=== PATIENT | female | born 1985 | race Caucasian/White ===

== ENCOUNTER 2022-05-16 12:17 | Emergency (ER) | payer OTHER, SELFPAY ==
--- NOTE | ~2022-05-16 | XR_ITS ---
XR hand RT min 3V DATE: 05/16/2022 13:39 INDICATION: Pain and swelling at third through fifth metacarpals TECHNIQUE: 3 views COMPARISON: None FINDINGS: No fracture or dislocation, periosteal reaction or bone destruction, joint space narrowing, erosive change or chondrocalcinosis. IMPRESSION: Negative Reviewed, dictated and finalized at location B. IMPRESSION: Negative
--- NOTE | ~2022-05-16 | XR_ITS ---
XR wrist RT min 3V DATE: 05/16/2022 13:39 INDICATION: Pain and swelling TECHNIQUE: 4 views COMPARISON: None FINDINGS: No fracture or dislocation, periosteal reaction or bone destruction, joint space target, er osive change or chondrocalcinosis. IMPRESSION: Negative Reviewed, dictated and finalized at location B. IMPRESSION: Negative
[2022-05-16 12:24] VITALS: BP 141/111; PULSE 87; RESP 14; TEMP 36.6; O2SAT 98
--- NOTE | 2022-05-16 13:41 | ED_ITS ---
HPI - Extremity Injury (Upper) General Chief Complaint: Extremity Injury, Upper Stated Complaint: Right Hand Pain Time Seen by Provider: 05/16/22 12:28 History of Present Illness HPI narrative: 37-year-old female presents the emergency room for evaluation of pain to her right hand. Patient states she was out walking her dog, when the dog took off causing the leash to wrapped tightly around her hand. Injury occurred earlier this morning. Patient presents with pain to the ulnar side of her right hand. States she took 2 Aleve with no alleviation of pain. Related Data Allergies Allergy/AdvReac Type Severity Reaction Status Date / Time No Known Allergies Allergy Mild Verified 05/16/22 12:27 Review of Systems Review of Systems: CONSTITUTIONAL: Denies fever, chills, or sweats. EYES: Denies visual changes, redness, or discharge. ENT: Denies rhinorrhea, congestion, sore throat, or otalgia. CARDIOVASCULAR: Denies chest pain, palpitations, or edema. RESPIRATORY: Denies cough or dyspnea. GASTROINTESTINAL: Denies abdominal pain, nausea, vomiting, or diarrhea. GENITOURINARY: Denies dysuria or hematuria. SKIN: Denies rash or itching. MUSCULOSKELETAL: Reports pain to right hand NEUROLOGIC: Denies headache, numbness, dizziness, or weakness. PSYCHIATRIC: Denies anxiety or depression. Exam Narrative: GENERAL: Well-appearing, well-nourished, no physical limitations, and in no acute distress. HEAD: Normocephalic, atraumatic. EYES: Conjunctivae normal, PERRLA and EOMI. CHEST: Clear to auscultation. No respiratory distress. No wheezes rales or rhonchi. No tenderness. HEART: Regular rate and rhythm. No murmur heard. Normal peripheral pulses. EXTREMITIES: Right hand: Soft tissue swelling, ecchymosis and tenderness to the fifth meta carpal. No obvious bony abnormality. Limited range of motion due to pain. Neurovascular is intact distally SKIN: Warm, dry, no rash. No noted wounds NEURO: No focal deficits. Alert and oriented x3. MAEW. CN's II-XI intact bilaterally, normal gait PSYCH: Cooperative. Normal mood and affect. Course Vital Signs Vital signs: Vital Signs Temperature 36.6 C 05/16/22 12:24 Pulse Rate 87 05/16/22 12:24 Respiratory Rate 14 05/16/22 12:24 Blood Pressure 141/111 H 05/16/22 12:24 Pulse Oximetry 98 05/16/22 12:24 Temperature 36.6 C 05/16/22 12:24 Pulse Rate 87 05/16/22 12:24 Respiratory Rate 14 05/16/22 12:24 Blood Pressure 141/111 H 05/16/22 12:24 Pulse Oximetry 98 05/16/22 12:24 Discharge Plan Discharge Clinical Impression: Contusion of hand, right Patient Disposition: Home, Self-Care Condition: Stable Instructions: Antibiotic Form Additional Instructions: Continue using naproxen Follow-up/Referrals: PHYSICIAN,SHUTTLELESS LOOM WEAVER [Primary Care Provider] - Time of Disposition: 14:12
== END 2022-05-16 14:39 | disposition home or self-care (01) ==
PROVIDERS: Emergency Provider Nurse Practitioner Family
DX: S60.221A Contusion of right hand, initial encounter (principal); Y93.K1 Activity, walking an animal; W49.09XA Other specified item causing external constriction, initial encounter
CPT/HCPCS: 73110; 73130; 99283

== ENCOUNTER 2023-12-05 13:20 | Emergency (ER) | payer BC, SELFPAY ==
--- NOTE | ~2023-12-05 | XR_ITS ---
EXAMINATION: XR tibia fibula RT 2V DATE: 12/05/2023 14:33 INDICATION: Right davis pain. Fall. TECHNIQUE: 2 views of right tibia and fibula were obtained. COMPARISON: None. FINDINGS: Bone alignment is normal. No fracture. There is mild right knee osteoarthritis. IMPRESSION: 1. Mild right knee osteoarthritis. Reviewed, dictated and finalized at location A.
--- NOTE | ~2023-12-05 | XR_ITS ---
EXAMINATION: XR knee RT min 4V DATE: 12/05/2023 14:33 INDICATION: Right knee pain. Fall. TECHNIQUE: 4 views of right knee were obtained. COMPARISON: None. FINDINGS: Bone alignment is normal. No fracture. There is mild osteoarthritis of medial compartment c haracterized by tiny osteophytes. No knee joint effusion. IMPRESSION: 1. Mild right knee osteoarthritis. Reviewed, dictated and finalized at location A.
[2023-12-05 13:21] VITALS: BP 148/86; PULSE 110; RESP 18; TEMP 36.6; O2SAT 99
--- NOTE | 2023-12-05 13:37 | ED.LOWEXIN ---
HPI - Extremity Injury (Lower) General Chief Complaint: Extremity Injury, Lower Stated Complaint: right leg injury Time Seen by Provider: 12/05/23 13:37 Focused HPI: Yesica is a 38-year-old female patient presenting to the ER today with complaints of right tib-fib/knee pain after falling this afternoon. She reports she was stepping over a gate and slipped and fell injuring her knee and leg. General: Well-developed, well nourished, in no apparent distress Head: Normocephalic, atraumatic. Cardio: Regular rate and rhythm, s1 and s2 normal, no murmur appreciated. Resp: Clear to auscultation bilaterally, no rhonchi, rales, wheezing or rubs. Musculoskeletal: No deformity, tender to palpation over the posterior knee and anterior davis, limited range of motion of the knee due to pain muscle strength strong and equal, peripheral pulse strong, no edema, no cyanosis, normal gait and station Patient screened in triage and initial orders placed. Additional care and disposition to be based upon diagnostic testing and treatment. Source: patient Mode of arrival: ambulatory Limitations: no limitations Related Data Allergies Allergy/AdvReac Type Severity Reaction Status Date / Time No Known Allergies Allergy Mild Verified 05/16/22 12:27 Review of Systems Review of Systems: Pertinent positives per HPI. Patient denies any fever, chills, rash, headache, visual changes, dizziness, cough, runny nose, sore throat, shortness of breath, chest pain, palpitations, nausea, vomiting, diarrhea, constipation, abdominal pain, or any urinary issues. PMFSH Comments At the time of my signature, I reviewed and agree with the nursing past medical, surgical, social, and family history. There is no relevant family history pertinent to the patient complaint. Exam Narrative: General: Well-developed, well nourished, in no apparent distress Head: Normocephalic, atraumatic. Cardio: Regular rate and rhythm, s1 and s2 normal, no murmur appreciated. Resp: Clear to auscultation bilaterally, no rhonchi, rales, wheezing or rubs. Musculoskeletal: No deformity, tender to palpation over the posterior knee and anterior davis, limited range of motion of the knee due to pain muscle strength strong and equal, peripheral pulse strong, no edema, no cyanosis, normal gait and station Course Course Emergency Course: Portions of this record may have been created with voice recognition software. Vital Signs Vital signs: Vital Signs Temperature 36.6 C 12/05/23 13:21 Pulse Rate 110 H 12/05/23 13:21 Respiratory Rate 18 12/05/23 13:21 Blood Pressure 148/86 H 12/05/23 13:21 Pulse Oximetry 99 12/05/23 13:21 Oxygen Delivery Room Air 12/05/23 13:21 Temperature 36.6 C 12/05/23 13:21 Pulse Rate 110 H 12/05/23 13:21 Respiratory Rate 18 12/05/23 13:21 Blood Pressure 148/86 H 12/05/23 13:21 Pulse Oximetry 99 12/05/23 13:21 Oxygen Delivery Room Air 12/05/23 13:21 Vital signs reviewed MDM - Extremity Injury (Lower) MDM Narrative Medical decision making narrative: At the time of visit patient is resting comfortably on the exam table. Patient appears to be nontoxic. Diagnostics: Knee X-Ray 12/05/23 14:35 IMPRESSION: 1. Mild right knee osteoarthritis. Tibia/Fibula X-Ray 12/05/23 14:36 IMPRESSION: 1. Mild right knee osteoarthritis. Plan: I suspect patient has right knee sprain/muscle calf strain. Will send in prescription for naproxen and cyclobenzaprine. Supportive measures were discussed with the patient and they voiced understanding discharge instructions and agrees to treatment plan. Return precautions reviewed Differential Diagnosis Differential diagnosis: Likely acute internal derangement of knee and other (Knee sprain, muscle strain, knee fracture) Imaging Data Radiologist's impression: ITS Impressions Knee X-Ray 12/05/23 14:35
[2023-12-05] MEDS: HYDROcodone/acetaminophen (*CRX) 5-325 MG TABLET 1 TAB PO (14:58)
[2023-12-05 15:10] VITALS: BP 140/86; PULSE 99; RESP 18; TEMP 36.6; O2SAT 98
== END 2023-12-05 15:12 | disposition home or self-care (01) ==
LOC: ANHED 14:59
PROVIDERS: Emergency Provider Nurse Practitioner Family
DX: S83.8X1A Sprain of other specified parts of right knee, initial encounter (principal); S86.911A Strain of unspecified muscle(s) and tendon(s) at lower leg level, right leg, initial encounter; M17.11 Unilateral primary osteoarthritis, right knee; W01.0XXA Fall on same level from slipping, tripping and stumbling without subsequent striking against object, initial encounter
CPT/HCPCS: 73564; 73590; 99284; A9270

== ENCOUNTER 2025-07-13 11:54 | Outpatient (CLI) | payer BC, SELFPAY ==
--- NOTE | ~2025-07-13 | XR_ITS ---
Lumbar spine series Indication: Low back pain Comparison: None Technique: 3 views lumbar spine Findings: 5 nonrib-bearing lumbar-type vertebral bodies. No acute fracture. Grade 1 anterolisthesis of L4 on 5. Vertebral bodies normal height. Disc spaces maintained. Mild posterior element degenerative changes L4-5. SI joints congruent. Sacrum intact. 10 mm stone right kidney lower pole. IMPRESSION: 1. 10 mm stone right kidney. 2. Grade 1 anterolisthesis of L4 on 5. 3. No acute abnormality. Reviewed, dictated and finalized at location R. 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
--- NOTE | ~2025-07-13 | XR_ITS ---
EXAMINATION: XR elbow LT min 3V DATE: 07/13/2025 12:20 INDICATION: Pain TECHNIQUE: Left elbow x-rays were obtained. COMPARISON: None. FINDINGS: No displaced fracture, subluxation or dislocation. No large effusion or gross soft tissue swelling. No suspicious radiopaque foreign body seen. IMPRESSION: 1. No gross acute or aggressive bony or soft tissue process seen. Reviewed, dictated and finalized at location A. 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
--- NOTE | ~2025-07-13 | XR_ITS ---
EXAMINATION: XR elbow RT min 3V DATE: 07/13/2025 12:20 INDICATION: Pain TECHNIQUE: Right elbow were obtained. COMPARISON: None. FINDINGS: Punctate calcification overlying the anteromedial margin of the trochlea ulnar articulation on the oblique view is not clearly localized on other images. No displaced fracture, subluxation or dislocation. No large effusion or gross soft tissue swelling. No suspicious radiopaque foreign body s een. IMPRESSION: 1. Punctate calcification along the medial aspect of the elbow possibly representing small intra-articular loose body. 2. No gross acute or aggressive bony or soft tissue process seen. Reviewed, dictated and finalized at location A. 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 Punctate calcification along the medial aspect of the elbow possibly represe nting small intra-articular loose body. 2. No gross acute or aggressive bony or soft tissue process seen.
== END 2025-07-13 11:55 | disposition home or self-care (01) ==
LOC: MICIMG 11:57
DX: M25.521 Pain in right elbow (principal); M54.50 Low back pain, unspecified; M25.522 Pain in left elbow
CPT/HCPCS: 72100; 73080